=== PATIENT | male | born 1965 | race American Indian/Alaskan Native ===

== ENCOUNTER 2016-09-25 09:29 | Emergency (ER) | payer OTHER ==
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
[2016-09-25] MEDS ORDERED: MOTRIN PO ONE (12:05)
--- NOTE | 2016-09-25 12:53 | XRay Report ---
Lumbar spine 3 views: History: Pain. Findings: Normal height of vertebral bodies. Minimal decrease in height of L3-4 and L5-S1 interspace. Sclerotic articular surfaces with peripheral osteophytes suggestive of early degenerative changes. No fracture. No soft tissue calcification. Impression: Early degenerative changes lumbar spine.
--- NOTE | 2016-09-25 12:54 | XRay Report ---
Thoracic spine 2 views: History: Pain. Findings: Normal height of vertebral bodies. Minimal decrease in height of intervertebral disc spaces. Sclerotic adjacent articular surfaces with peripheral osteophytes suggestive of degenerative changes. No fracture. No paravertebral mass. Impression: Degenerative change dorsal spine.
[2016-09-25 13:37] VITALS: BP 138/88
== END 2016-09-25 13:37 | disposition home or self-care (01) ==
LOC: ED 09:29
DX: M51.36 Other intervertebral disc degeneration, lumbar region (principal); G89.29 Other chronic pain; M54.5 Low back pain; M47.814 Spondylosis without myelopathy or radiculopathy, thoracic region; Z91.013 Allergy to seafood; I10 Essential (primary) hypertension; V49.49XA Driver injured in collision with other motor vehicles in traffic accident, initial encounter; Y92.488 Other paved roadways as the place of occurrence of the external cause; Y93.89 Activity, other specified; Y99.8 Other external cause status
CPT/HCPCS: 72072; 72100